=== PATIENT | female | born 1990 | race Caucasian/White ===

== ENCOUNTER → 2025-02-12 | Emergency (ER) | payer OTHER ==
[~2025-02-12] MED LIST: AMOX1TAB5 PO; PEPCID AC20 MG PO
[2025-02-12 11:04] VITALS: BP 95/60; O2SAT 99
[2025-02-12 11:39] LABS: BASO % 0.7 % (0.1-1.2); EOS # 0.07 (0.04-0.54); HEMATOCRIT 31.9 % (34.1-44.9); HEMOGLOBIN 10.9 g/dL (11.2-15.7); LYMPH # 1.23 (1.18-3.74); LYMPH % 17.9 % (19.3-53.1); MEAN CORPUSCULAR HEMOGLOBIN 32.4 pg (25.6-32.2); MONO # 0.49 (0.24-0.82); MONO % 7.1 % (4.7-12.5); NEUT # 5.02 (1.56-6.13); NEUT % 72.9 % (34.0-71.1); PLATELET COUNT 275 K/uL (163-369); RED BLOOD COUNT 3.36 M/uL (3.93-5.22); RED CELL DISTRIBUTION WIDTH 13.1 % (11.6-14.4)
[2025-02-12 12:13] LABS: URINE APPEARANCE Clear; URINE BILIRRUBIN Negative (NEGATIVE); URINE BLOOD Negative; URINE COLOR Yellow; URINE GLUCOSE Negative (NEGATIVE); URINE KETONE Trace (NEGATIVE); URINE LEUKOCYTE Moderate; URINE NITRATE Negative; URINE PROTEIN 30 (NEGATIVE)
[2025-02-12 12:14] LABS: URINE BACTERIA 72.1 uL (0.0-1933); URINE EPITHELIAL CELLS 31.4 uL (0.0-38.8); URINE RBC 4.7 uL (0.0-20.8); URINE WBC 269.7 uL (0.0-23.2)
[2025-02-12 12:34] LABS: URINE CAST 0.58 uL (0.0-1.40)
[2025-02-12 12:35] LABS: URINE MUCUS MODERATE
== END | disposition home or self-care (01) ==
LOC: ER 09:50
PROVIDERS: General Practice
DX: O23.32 Infections of other parts of urinary tract in pregnancy, second trimester (principal); N39.0 Urinary tract infection, site not specified; Z3A.18 18 weeks gestation of pregnancy